=== PATIENT | male | born 2000 | race Caucasian/White ===

== ENCOUNTER 2020-01-03 08:48 | Emergency (ER) | payer OTHER ==
[~2020-01-03] VITALS: Ht 185.4 cm; Wt 74.8 kg
--- NOTE | 2020-01-03 08:55 | NUR ---
Dr Laughlin at the bedside for MSE.
[2020-01-03] MEDS: IV NORMAL SALINE 1000 ML BAG IV ONE (09:08)
[2020-01-03] MEDS: ONDANSETRON 4 MG/2 ML VIAL IV ONE ×2 (09:08→10:02)
[2020-01-03] MEDS ORDERED: ONDANSETRON 4 MG/2 ML VIAL ONE ×2 (09:09→10:02)
[2020-01-03 09:26] LABS: BASOPHILS # (AUTO) 0.1 K/uL (0.0-8.0); BASOPHILS % (AUTO) 0.5 % (0.0-2.0); EOSINOPHILS % (AUTO) 0.3 % (0.0-7.0); HEMATOCRIT 43.4 % (36.7-47.1); HEMOGLOBIN 14.9 g/dL (12.5-16.3); LYMPHOCYTES # (AUTO) 1.6 K/uL (20.0-40.0); LYMPHOCYTES % (AUTO) 11.9 % (20.5-74.5); MEAN CORPUSCULAR HEMOGLOBIN 30.1 uug (23.8-33.4); MEAN CORPUSCULAR HGB CONC 34 g/dL (32.5-36.3); MEAN CORPUSCULAR VOLUME 87.7 fL (73.0-96.2); MONOCYTES % (AUTO) 7.5 % (0-11); NEUTROPHILS # (AUTO) 10.4 K/uL (1.8-8.9); NEUTROPHILS % (AUTO) 79.8 % (31.5-64.5); PLATELET COUNT (AUTO) 185 K/uL (152-348); RED BLOOD CELL COUNT(AUTO) 4.95 MIL/uL (4.06-5.63)
[2020-01-03 09:38] LABS: CREATININE 1.1 mg/dL (0.6-1.3); POTASSIUM 3.1 mmol/L (3.5-5.1)
[2020-01-03 09:44] LABS: BILIRUBIN,DIRECT 0.2 mg/dL (0.0-0.2); BILIRUBIN,TOTAL 0.7 mg/dL (0.2-1.0); TOTAL PROTEIN, SERUM 8.1 g/dL (6.4-8.2)
[2020-01-03] MEDS ORDERED: POTASSIUM CHLORIDE 20 MEQ TAB.PRT.SR ONE (10:07)
--- NOTE | 2020-01-03 10:16 | NUR ---
Patient is resting comfortably in bed with eyes closed, NAD noted.
[2020-01-03] MEDS: POTASSIUM CHLORIDE 20 MEQ TAB.PRT.SR PO ONE (10:27)
[2020-01-03 10:55] VITALS: BP 115/70
--- NOTE | 2020-01-03 10:55 | NUR ---
IV removed. Catheter intact and site benign. Pressure and 4x4 gauze applied to site. No bleeding noted.
--- NOTE | 2020-01-03 10:56 | NUR ---
Patient discharged to home in stable condition. Written and verbal after care instructions given. Patient verbalizes understanding of instructions. Stressed follow up or return to ER for worsening s/s.
== END 2020-01-03 10:56 | disposition home or self-care (01) ==
LOC: ER 08:48
DX: K52.9 Noninfective gastroenteritis and colitis, unspecified (principal); E87.6 Hypokalemia; R79.89 Other specified abnormal findings of blood chemistry
CPT/HCPCS: 36415; 80048; 80076; 83690; 85025; 96361; 96374; 96376; 99284; J2405 ×2; A4663; J7030

== ENCOUNTER 2020-12-03 03:37 | Emergency (ER) | payer OTHER ==
[~2020-12-03] VITALS: Ht 185.4 cm; Wt 79.4 kg
--- NOTE | 2020-12-03 03:50 | NUR ---
Patient came in for flu like symptoms. States he has been having a fever and generalized weekness and ear aches x2 days. Patient is A/O x4, no SOB or labored breathing, afebrile. Clear speech, complete sentences. No GI/ distress.
--- NOTE | 2020-12-03 03:53 | NUR ---
Dr. Engel at bedside, MSE in progress.
[2020-12-03] MEDS ORDERED: DEXAMETHASONE SOD PHOSPHATE 4 MG INJ ONE (04:13)
[2020-12-03] MEDS ORDERED: DEXAMETHASONE SOD PHOSPHATE 4 MG INJ IM ONE (04:15)
--- NOTE | 2020-12-03 05:02 | NUR ---
Patient discharged to home in stable condition. A/O x4, no SOB or labored breathing. Afebrile Written and verbal after care instructions given. Patient verbalizes understanding of instructions. Stressed follow up or return to ER for worsening s/s. Steady gait. Picked up by father.
[2020-12-03 05:05] VITALS: BP 139/66
== END 2020-12-03 05:00 | disposition home or self-care (01) ==
LOC: ER 03:39
DX: J02.9 Acute pharyngitis, unspecified (principal)
CPT/HCPCS: 86403; 87070; 96372; 99283; J1100; A4663